=== PATIENT | female | born 1970 | race Caucasian/White ===

== ENCOUNTER 2018-10-17 10:27 | Emergency (ER) | payer OTHER ==
[~2018-10-17] VITALS: Ht 154.9 cm; Wt 57.2 kg
[2018-10-17] MEDS ORDERED: CLONAZEPAM0.5 MG (10:40)
== END 2018-10-17 14:54 | disposition home or self-care (01) ==
LOC: ER 10:27
DX: R53.1 Weakness (principal); D64.9 Anemia, unspecified; E55.9 Vitamin D deficiency, unspecified

== ENCOUNTER 2018-10-20 10:53 | Emergency (ER) | payer OTHER ==
[~2018-10-20] VITALS: Ht 154.9 cm; Wt 56.7 kg
[~2018-10-20 10:53] MED LIST: CLONAZEPAM0.5 MG
== END 2018-10-20 14:36 | disposition home or self-care (01) ==
LOC: ER 10:53
DX: K29.70 Gastritis, unspecified, without bleeding (principal); H53.8 Other visual disturbances; F06.4 Anxiety disorder due to known physiological condition

== ENCOUNTER 2021-01-17 19:50 | Emergency (ER) | payer OTHER ==
[~2021-01-17] VITALS: Ht 152.4 cm; Wt 59.0 kg
[2021-01-17] MEDS ORDERED: CIPRO500 MG PO (22:59)
[2021-01-17] MEDS ORDERED: PYRIDIUM200 MG PO (22:59)
[2021-01-17] MEDS ORDERED: TAMS0.4C PO (22:59)
== END 2021-01-18 01:26 | disposition home or self-care (01) ==
LOC: ER 19:50
DX: N20.0 Calculus of kidney (principal); N39.0 Urinary tract infection, site not specified; Z11.52 Encounter for screening for COVID-19

== ENCOUNTER → 2024-12-18 | Emergency (ER) | payer OTHER ==
[~2024-12-18] VITALS: Ht 154.9 cm; Wt 51.3 kg
[~2024-12-18] MED LIST changes: +CIPRO500 MG PO; +PYRIDIUM200 MG PO; +TAMS0.4C PO
== END | disposition left against medical advice (07) ==
LOC: ER 14:20
DX: R10.9 Unspecified abdominal pain (principal)